=== PATIENT | male | born 1975 | race African-American/Black ===

== ENCOUNTER 2024-03-12 17:15 | Emergency (ER) | payer MEDICAID ==
[~2024-03-12] VITALS: Ht 182.9 cm; Wt 99.8 kg
[~2024-03-12 17:15] MED LIST: ASPI-864 MT; CARV12.545 MT; EMPA10TA MT; FURO-151 MT; LIP40 MT; PANT40TA51 MT; SACU1TAB MT; SPIR25TA6 MT
[2024-03-12 17:18] VITALS: O2SAT 99
[2024-03-12 17:19] VITALS: BP 151/103; PULSE 125; RESP 16; TEMP 98.7; O2SAT 100
[2024-03-12] MEDS ORDERED: FUROSEMIDE 40MG/4ML VIAL IVP ONE (18:15)
[2024-03-12 19:15] LABS: BASOPHILS % 1.3 % (0.0-2.0); EOSINOPHILS % 0.1 % (0.0-5.0); HEMATOCRIT. 41.4 % (42.0-52.0); HEMOGLOBIN. 13.6 g/dL (14.0-18.0); MEAN CORPUSCULAR HEMOGLOBIN 30.2 pg (28.0-32.0); MEAN CORPUSCULAR HGB CONC 32.8 g/dL (31.0-37.0); MEAN CORPUSCULAR VOLUME 92.3 fL (80.0-94.0); MEAN PLATELET VOLUME 7.7 fl (7.4-10.4); MONOCYTES % 8.1 % (2.0-8.0); NEUTROPHILS % 83.5 % (40.0-76.0); PLATELET 391 x1000/uL (130-400); RED BLOOD CELL COUNT 4.49 mill/uL (4.7-6.1); RED CELL DISTRIBUTION WIDTH 15.7 % (11.6-14.6); WHITE BLOOD COUNT 6.7 x1000/uL (4.5-11.0)
[2024-03-12 19:17] LABS: CHLORIDE 104 mEq/L (98-107); POTASSIUM 4.8 mEq/L (3.5-5.1); SODIUM 135 mEq/L (136-145)
[2024-03-12 19:18] LABS: CALCIUM 9.5 mg/dL (8.7-10.4); CARBON DIOXIDE 26 mEq/L (21-32)
[2024-03-12 19:23] LABS: CREATININE 1.3 mg/dL (0.6-1.3); GLUCOSE 101 mg/dL (70-105); UREA NITROGEN BLOOD 11 mg/dL (9-23)
[2024-03-12 19:25] LABS: ALANINE AMINOTRANSFERASE 16 IU/L (10-49); ASPARTATE AMINOTRANSFERASE 22 IU/L (<34); BILIRUBIN DIRECT 0.3 mg/dL (<=3.0)
[2024-03-12 19:26] LABS: BILIRUBIN TOTAL 0.9 mg/dL (0.1-1.0); PROTEIN TOTAL 8.5 g/dL (6.0-8.3)
[2024-03-12 19:29] LABS: ETHANOL BLOOD < 10 mg/dL (<10); TROPONIN I HIGH SENSITIVITY 72 ng/L (3.0-53)
[2024-03-12 20:20] LABS: DIFFERENTIAL COMMENT 1
== END 2024-03-12 20:52 | disposition left against medical advice (07) ==
LOC: ER 17:15 → EDBEDREQ 21:10 → EDBEDREQTM 21:10 → CANBEDREQ 03-13 01:08
DX: I21.4 Non-ST elevation (NSTEMI) myocardial infarction (principal); E11.9 Type 2 diabetes mellitus without complications; F20.9 Schizophrenia, unspecified; I11.0 Hypertensive heart disease with heart failure; I50.9 Heart failure, unspecified; Z79.899 Other long term (current) drug therapy; Z79.84 Long term (current) use of oral hypoglycemic drugs; Z79.82 Long term (current) use of aspirin; Z91.041 Radiographic dye allergy status; Z88.8 Allergy status to other drugs, medicaments and biological substances; Z88.0 Allergy status to penicillin
CPT/HCPCS: 36415; 71045; 80048; 80076; 80320; 83880; 84484; 85025; 93005; 99285; G0480